=== PATIENT | male | born 1965 | race Caucasian/White ===

== ENCOUNTER 2023-03-30 17:50 | Emergency (ER) | payer OTHER ==
[2023-03-30] MEDS ORDERED: Acetaminophen/oxyCODONE 325-5 MG Tab PO ONE (20:02)
== END 2023-03-30 21:41 | disposition home or self-care (01) ==
LOC: MW.ED 17:50
DX: S89.91XA Unspecified injury of right lower leg, initial encounter (principal); Z86.16 Personal history of COVID-19; V83.9XXA Unspecified occupant of special industrial vehicle injured in nontraffic accident, initial encounter; Y92.410 Unspecified street and highway as the place of occurrence of the external cause
CPT/HCPCS: 73562; 99283; A9270